=== PATIENT | male | born 1955 | race Caucasian/White ===

== ENCOUNTER 2019-05-24 17:19 | Emergency (ER) | payer MEDICARE, OTHER ==
[~2019-05-24] VITALS: Ht 185.4 cm; Wt 148.1 kg
[~2019-05-24 17:19] MED LIST: NO HOME MEDS; ZOF4T PO
[2019-05-24 18:09] LABS: BASOPHILS # (AUTO) 0.1 X10'3 (0-0.2); BASOPHILS % (AUTO) 0.7 % (0-1); EOSINOPHILS # (AUTO) 0.3 X10'3 (0-0.9); LYMPHOCYTES # (AUTO) 2.2 X10'3 (1.1-4.8); LYMPHOCYTES % (AUTO) 19.9 % (21-51); MEAN CORPUSCULAR HEMOGLOBIN 28.3 PG (27.0-31.0); MEAN CORPUSCULAR HGB CONC 33.3 g/dL (33.0-36.5); MEAN CORPUSCULAR VOLUME 85.2 FL (78-98); MEAN PLATELET VOLUME 6.9 FL (7.4-10.4); MONOCYTES # (AUTO) 0.5 X10'3 (0-0.9); NEUTROPHILS # (AUTO) 7.7 X10'3 (1.8-7.7); NEUTROPHILS % (AUTO) 71.4 % (42-75); PLATELET COUNT 279 X10'3 (140-440); RED BLOOD COUNT 4.93 X10'6 (4.70-6.10); RED CELL DISTRIBUTION WIDTH 14.4 % (11.5-14.5); WHITE BLOOD COUNT 10.9 X10'3 (4.5-11.0)
[2019-05-24 18:59] LABS: ALANINE AMINOTRANSFERASE 24 U/L (12-78); ALBUMIN 3.1 G/DL (3.4-5.0); ALBUMIN/GLOBULIN RATIO 0.8 (1.1-1.5); ALKALINE PHOSPHATASE 50 IU/L (46-116); ANION GAP 3 (8-16); ASPARTATE AMINO TRANSFERASE 10 U/L (10-37); BILIRUBIN,TOTAL 0.3 MG/DL (0.1-1.0); BLOOD UREA NITROGEN 11 MG/DL (7-18); BUN/CREATININE RATIO 9.6 (5.4-32.0); CALCIUM 8.3 MG/DL (8.5-10.1); CHLORIDE 106 MMOL/L (99-107); CREATININE 1.14 MG/DL (0.60-1.10); GLUCOSE 153 MG/DL (70-104); SODIUM 140 MMOL/L (135-145); TOTAL CARBON DIOXIDE 30.9 MMOL/L (24-32); TOTAL PROTEIN 6.9 G/DL (6.4-8.2); eGFR 65 ML/MIN
[2019-05-24 19:05] LABS: LIPASE 605 U/L (73-393); MAGNESIUM 2.3 MG/DL (1.5-2.4)
[2019-05-24 19:10] VITALS: BP 151/75
== END 2019-05-24 19:56 | disposition home or self-care (01) ==
LOC: ER 17:20
DX: R10.13 Epigastric pain (principal); R07.89 Other chest pain; R60.0 Localized edema; I11.0 Hypertensive heart disease with heart failure; I50.9 Heart failure, unspecified; J44.9 Chronic obstructive pulmonary disease, unspecified; E11.9 Type 2 diabetes mellitus without complications; Z88.0 Allergy status to penicillin; Z79.899 Other long term (current) drug therapy
CPT/HCPCS: 36415; 71045; 80053; 83690; 83735; 83880; 84484; 85025; 93005; 99284

== ENCOUNTER 2019-10-15 14:53 | Emergency (ER) | payer MEDICARE | END 2019-10-15 15:47 | disposition left against medical advice (07) | LOC: ER 14:54 | DX: I10 Essential (primary) hypertension (principal); Z53.21 Procedure and treatment not carried out due to patient leaving prior to being seen by health care provider ==

== ENCOUNTER 2020-05-26 21:04 | Emergency (ER) | payer MEDICARE, OTHER ==
[~2020-05-26] VITALS: Ht 188 cm; Wt 130.0 kg
[~2020-05-26 21:04] MED LIST changes: +niCARDipine in NS 40mg/200ml (0.2mg/ml) IVPB IV ONE
[2020-05-26] MEDS ORDERED: iohexol 350MG/ML 100ml bottle IV ONE (21:13)
[2020-05-26 21:26] LABS: BASOPHILS # (AUTO) 0.1 X10'3 (0-0.2); BASOPHILS % (AUTO) 0.8 % (0-1); EOSINOPHILS # (AUTO) 0.2 X10'3 (0-0.9); HEMATOCRIT 46.8 % (42.0-52.0); HEMOGLOBIN 15.2 g/dl (14.0-17.9); LYMPHOCYTES # (AUTO) 2.8 X10'3 (1.1-4.8); LYMPHOCYTES % (AUTO) 24.2 % (21-51); MEAN CORPUSCULAR HEMOGLOBIN 27.9 PG (27.0-31.0); MEAN CORPUSCULAR HGB CONC 32.5 g/dL (33.0-36.5); MONOCYTES # (AUTO) 0.6 X10'3 (0-0.9); MONOCYTES % (AUTO) 5.2 % (2-12); NEUTROPHILS # (AUTO) 7.9 X10'3 (1.8-7.7); NEUTROPHILS % (AUTO) 67.8 % (42-75); PLATELET COUNT 245 X10'3 (140-440); RED BLOOD COUNT 5.44 X10'6 (4.70-6.10); RED CELL DISTRIBUTION WIDTH 14.3 % (11.5-14.5); WHITE BLOOD COUNT 11.7 X10'3 (4.5-11.0)
--- NOTE | 2020-05-26 21:28 | NUR ---
SPOKE WITH PATIENT'S CARMELO, LAST SEEN NORMAL WAS 1912, PATIENT HAD DINNER AND WENT OUT WITH SON. WHEN THE SON RETURNED HOME, HE STATED THAT THERE WAS SOMETHING WRONG WITH HIS DAD. IT WAS AT THIS TIME THAT EMS WAS CALLED.
[2020-05-26 21:37] LABS: PARTIAL THROMBOPLASTIN TIME 29 SECONDS (22-32)
[2020-05-26] MEDS ORDERED: niCARDipine-NS 40mg/200ml IVPB 200 ML IV SCH (21:38)
[2020-05-26 21:39] LABS: ALANINE AMINOTRANSFERASE 31 U/L (12-78); ALBUMIN 3.2 G/DL (3.4-5.0); ALBUMIN/GLOBULIN RATIO 0.7 (1.1-1.5); ALKALINE PHOSPHATASE 72 IU/L (46-116); ANION GAP 8 (8-16); ASPARTATE AMINO TRANSFERASE 20 U/L (10-37); BILIRUBIN,TOTAL 0.2 MG/DL (0.1-1.0); BLOOD UREA NITROGEN 10 MG/DL (7-18); BUN/CREATININE RATIO 9.1 (5.4-32.0); CALCIUM 8.8 MG/DL (8.5-10.1); CHLORIDE 100 MMOL/L (99-107); GLUCOSE 287 MG/DL (70-104); POTASSIUM 4.3 MMOL/L (3.5-5.1); SODIUM 138 MMOL/L (135-145); TOTAL CARBON DIOXIDE 30.1 MMOL/L (24-32); TOTAL PROTEIN 7.5 G/DL (6.4-8.2); eGFR 68 ML/MIN
[2020-05-26 21:44] LABS: TROPONIN I 4.27 NG/ML (0.0-0.05)
[2020-05-26] MEDS ORDERED: alteplase 100MG inj. 100 ML IV ONE (21:50)
[2020-05-26] MEDS ORDERED: normal saline 50ml IV soln 50 ML IV SCH (21:50)
[2020-05-26] MEDS ORDERED: aspirin 325mg tablet PO ONE (21:50)
--- NOTE | 2020-05-26 23:31 | NUR ---
REPORT CALLED TO BETY BHANDARI AT [facility]
--- NOTE | 2020-05-26 23:34 | NUR ---
CARMELO CONTACTED REGARDING TRANSFER TO [facility]
[2020-05-27 00:07] VITALS: BP 109/89
== END 2020-05-27 00:21 | disposition short-term general hospital (02) ==
LOC: ER 21:04
DX: R79.89 Other specified abnormal findings of blood chemistry (principal); I63.9 Cerebral infarction, unspecified; L98.9 Disorder of the skin and subcutaneous tissue, unspecified; R41.0 Disorientation, unspecified; I50.9 Heart failure, unspecified; I11.0 Hypertensive heart disease with heart failure; J44.9 Chronic obstructive pulmonary disease, unspecified; E11.9 Type 2 diabetes mellitus without complications; Z72.89 Other problems related to lifestyle; Z88.0 Allergy status to penicillin; Z79.899 Other long term (current) drug therapy
CPT/HCPCS: 36415; 37195; 70450; 70496; 70498; 71045; 80053; 82948; 84484; 85025; 85610; 85730; 93005; 96365; 99285; J2997; Q9967